=== PATIENT | female | born 1995 | race Caucasian/White ===

== ENCOUNTER → 2022-01-15 01:47 | Outpatient (CLI) | payer OTHER, SELFPAY ==
[2022-01-15 11:09] LABS: SARS-CoV-2 RNA PCR Negative
== END ==
PROVIDERS: Visit Provider Student in an Organized Health Care Education/Training Program
DX: Z01.812 Encounter for preprocedural laboratory examination (principal); Z20.822 Contact with and (suspected) exposure to COVID-19
CPT/HCPCS: C9803; U0003; U0005

== ENCOUNTER 2022-01-18 00:20 | Day surgery (SDC) | payer OTHER, SELFPAY ==
--- NOTE | 2022-01-14 15:51 | SUR.PREOP ---
Report to the Outpatient Waiting Room, entrance under the green pavilion located off [facility], at time 0630 on date 01/18/22. OR Time: 0830. - You and your visitor will be asked a series of questions to screen for COVID 19 for your protection. - A mask is required within the hospital. Preoperative COVID Testing Requirements: No COVID Test needed if: (proof is required; if not received patient will have Rapid Test prior to entry) - Patient has received COVID Vaccine at least 14 days prior to procedure date or - Patient has positive COVID test result within last 90 days of surgery date. COVID Test needed if above criteria is not met If not COVID vaccinated a COVID test must be conducted within 72 hours of surgery and patient is asked to isolate self from time of testing until procedure. You will go to the [facility] for your COVID testing. The [facility] site is located at the corner of [address] [facility]. You will only be called if COVID results are positive and your surgeon may reschedule your elective surgery date. Patients may have clear liquids (water, carbonated beverages, clear teas, apple juice) until 3 hours prior to surgery with a maximum of 20 ounces. - NO CLEAR LIQUIDS AFTER 0530 - No food from midnight until time of surgery - Infants may have breast milk until 4 hours before surgery, infant formula 6 hours prior to surgery. - Children will be allowed to drink immediately following surgery. If applicable, please bring a bottle or sippy cup to assist with drinking. Juice, water, soda, and popsicles are readily available. For infants on formula, please bring formula the day of surgery. Pacifiers are allowed. Take the following medications with a SIP of water the morning of surgery: SERTRALINE Medications to discontinue per physician Date to take last dose Please no make-up, nail yi, hairspray, perfume, deodorant, or body powder the day of surgery. No jewelry (including any body piercings) or valuables the day of surgery, leave them at home. Please take a shower or bath the night before, or the morning of, surgery with an antibacterial soap. Wear comfortable, loose fitting clothing. Children are encouraged to wear pajamas. - Jewelry must be removed prior to entering the operating room. Rings and piercings that are not removed may be cut off. - The hospital will not accept responsibility for valuables. - Please leave all valuables, including medications, at home the day of surgery. If you are going home after surgery, a licensed moving van driver must drive you home. - NO public transportation without another adult. - We recommend that an adult stay with you for 24 hours following discharge. - We also recommend that you do not drive, make important decision, drink alcoholic beverages, or take any drugs that were not prescribed by your health care provider for at least 24 hours after your discharge time. For Pediatric surgeries, we recommend two adults accompany the child home (only one inside the building at this time). One visitor will be allowed to accompany the patient into the hospital. Patients visitor will be instructed to remain with patient at all times or leave the building. We will allow the visitor to come back to the postoperative area when patient is ready. Follow any additional instructions given to you from your surgeon. Telephone instructions given to JODY MURILLO and asked if any additional questions and then verbalized understanding. Patient advised to call surgeon office or pre surgery nurse liaison [phone] if any additional questions.
[2022-01-14 16:02] VITALS: BMI 39.9
--- NOTE | 2022-01-17 17:24 | PM.IMHP ---
H&P: HPI History of Present Illness Date/Time: 01/17/22 17:24 Patient is a 26yo woman who presents for permanent sterilization. Patient does not desire future fertility stating that she is certain she does not want any more children in the future. She declines all alternative methods of contraception. In general, patient reports feeling well today without complaints. Chief Complaint: Multiparity, desires permanent sterilization Review of Systems Review of Systems: All systems reviewed & are unremarkable except as noted in HPI and below Constitutional: Constitutional: Reports as per HPI, Reports no additional constitutional complaints, Denies chills, Denies fever(s), Denies headache(s) and Denies night sweats Eyes: Eyes: Reports as per HPI and Reports no additional eye complaints ENT: Reports system reviewed and no additional complaints, except as documented, Reports as per HPI, Reports Normal hearing present and Denies headache(s) Cardiovascular: Cardiovascular: Reports as per HPI, Reports no additional cardiovascular complaints, Denies chest pain and Denies dyspnea Respiratory: Respiratory: Reports as per HPI, Reports no additional respiratory complaints, Denies cough and Denies dyspnea Gastrointestinal: Gastrointestinal: Reports as per HPI, Reports no additional gastrointestinal complaints, Denies abdominal pain, Denies change in bowel habits, Denies change in stool character, Denies nausea and Denies vomiting Genitourinary: Genitourinary: Reports no additional female genitourinary complaints, Reports as per HPI, Denies abnormal vaginal bleeding, Denies genital lesions, Denies hot flashes, Denies dyspareunia, Denies pelvic pain, Denies sexual dysfunction, Denies urinary incontinence, Denies vaginal discharge, Denies vaginal dryness and Denies vaginal odor Musculoskeletal: Musculoskeletal: Reports no additional musculoskeletal complaints and Reports as per HPI Integumentary/Breasts: Skin/Breast: Reports system reviewed and no additional complaints, except as docu, Reports as per HPI, Denies breast pain and Denies nipple discharge Neurologic: Reports system reviewed and no additional complaints, except as documented, Reports as per HPI, Reports Normal hearing present and Denies headache(s) Psychiatric: Psychiatric: Reports no additional psychiatric complaints, Reports as per HPI, Denies anxiety and Denies depression Endocrine: Endocrine: Reports no additional endocrine complaints and Reports as per HPI Hematologic/Lymphatic: Hematologic/Lymphatic: Reports no additional hematologic/lymphatic complaints and Reports as per HPI Allergic/Immunologic: Allergic/Immunologic: Reports no additional allergic/immunologic complaints and Reports as per HPI [facility] Past Medical History Medical History Anxiety Surgical History Surgical History History of 2 sections Family History Family History Father Brain cancer Hypertension Mother Depression Anxiety Sibling Depression Anxiety Grandparent Carcinoma of colon Cerebrovascular accident Diabetes mellitus Heart disease Thyroid disorder Social History Social History Smoking status: Never smoker Spiritual care concerns: No Meds Home Medications and Allergies Home Medications Medication Instructions Recorded Confirmed Type sertraline 100 mg PO DAILY 01/14/22 01/14/22 History Allergies Allergy/AdvReac Type Severity Reaction Status Date / Time No Known Allergies Allergy Verified 01/14/22 16:05 Exam Const: General: cooperative, healthy appearing, comfortable and no acute distress HENMT: Head: normal to inspection Ears: hearing grossly normal bilaterally Eyes: General: appearance normal, both eyes and all related structures Neck
[2022-01-18] VITALS (8 sets, daily range): BP systolic 71–125; BP diastolic 25–68; PULSE 54–78; RESP 13–20; TEMP 36.9; O2SAT 96–100
[2022-01-18] MEDS: KETOROLAC 15 MG/ML VIAL (*BKC) IV PUSH (07:00)
[2022-01-18] MEDS: LACTATED RINGERS 1,000 ML 30 ML IV CONT ×2 (07:00→09:08)
[2022-01-18] MEDS: ACETAMINOPHEN 500 MG TABLET 1000 MG PO (07:15)
--- NOTE | 2022-01-18 07:20 | WPDHPUPDATE1 ---
History and Physical Update Update Date/Time: 01/18/22 07:20 History and Physical has been reviewed, including an updated exam of the patient. There are NO changes in the patient's condition. Risks, benefits, and alternatives have been discussed and questions answered. Patient agrees to proceed with procedure.
--- NOTE | 2022-01-18 07:53 | WPDANESEPPF ---
Anes - Initial Pre Proc Eval Procedure: Operation Date: 01/18/22 08:30 Proposed Procedures p Laparoscopic Bilateral Salpingectomy - Beulah Hernandez MD Date/Time: 01/18/22 07:53 Surgeon: Beulah Hernandez MD Pre Op Diagnosis: Desires Sterlization Patient Data Age: 26 Gender: F Height: 1.65 m Weight: 109 kg Allergies Allergy/AdvReac Type Severity Reaction Status Date / Time No Known Allergies Allergy Verified 01/18/22 07:34 Home Medications Medication Instructions Recorded Confirmed Type sertraline 100 mg PO DAILY 01/14/22 01/18/22 History Patient hx anesthesia problems: none Family hx anesthesia problems: none Results Review: All pre-operative results and documents have been reviewed as part of the pre-operative evaluation. PMFSH Past Medical History Medical History Anxiety Surgical History Surgical History History of 2 sections Family History Family History Father Brain cancer Hypertension Mother Depression Anxiety Sibling Depression Anxiety Grandparent Carcinoma of colon Cerebrovascular accident Diabetes mellitus Heart disease Thyroid disorder Social History Social History Smoking status: Never smoker Spiritual care concerns: No Anes - Eval Final PreProcedure Day of Procedure 01/18/22 07:53 Patient weight: morbidly obese Heart: regular rate and rhythm Lungs: clear to auscultation Airway: Mallampati scale class II Neurological: alert and oriented Last oral intake: >/= 8 hours ASA classification: III Emergent: no Anesthetic plan: proceed Anesthesia type and monitoring: general ETT and standard monitoring Results Review: All pre-operative results and documents have been reviewed as part of the pre-operative evaluation. Informed Consent: The patient's anesthetic plan and its attendant risks and benefits were discussed with the patient/family/POA. Questions were solicited and answers provided to the satisfaction of the patient/family/POA.
--- NOTE | 2022-01-18 09:06 | W.PM.PROC2 ---
Procedure Note - Detailed Date of Procedure 01/18/22 Pre-op Diagnosis Multiparity, desires permanent sterilization Post-op Diagnosis Same Procedure Performed Laparoscopic bilateral salpingectomy Surgeon Beulah Hernandez MD Forms Analysis Manager Skyler Yoder Anesthesia General Findings Normal appearing uterus, ovaries, and fallopian tubes Description of Procedure The patient was taken to the operating room, where she self transferred to the operating room table. She was placed in dorsal supine position. General anesthesia was administered and found to be adequate. The patient was then repositioned in dorsal lithotomy position with the use of Dmitri stirrups. She was prepped and draped in the usual sterile fashion. A red rubber catheter was used to drain the bladder of 110 cc of dark yellow urine. A sponge stick was inserted in the vagina for elevation of the uterus during the laparoscopic portion of the case. Bag Shaker's gloves were changed. Attention was then turned to the patient's abdomen. A small amount of Exparel was injected in infraumbilical region. An infraumbilical skin incision was made with a scalpel. With the abdomen tented up, a Veress needle was introduced into the abdominal cavity. Intra-abdominal placement was confirmed with saline. The Veress needle was connected to CO2 tubing and insufflation was begun. When adequate pneumoperitoneum was achieved, the Veress needle was removed and a 5 mm Optiview trocar was introduced under direct visualization with the laparoscope. The patient was placed in Trendelenburg position and a brief pelvic survey was performed with good visualization. Decision was made to place two accessory trocars for completion of the procedure, one in the left lower quadrant and the other in the right lower quadrant. A small amount of Exparel was administered in the right lower quadrant and a skin incision was made. A 5 mm trocar was introduced under direct visualization. Similarly, a small amount of Exparel was administered in the left lower quadrant and a skin incision was made. Another 5 mm trocar was introduced under direct visualization. With the use of blunt graspers, a general pelvic survey was performed. The uterus, ovaries and fallopian tubes appeared to be normal bilaterally. A few photographs were taken. The left fallopian tube was identified and followed through to the fimbriated end. Starting at the fimbriated end, sequential bites in the mesosalpinx beneath the fallopian tube were taken using a 5 mm LigaSure device towards the uterine cornua. When the level of the uterine cornua was reached, the fallopian tube was transected and completely detached. The fallopian tube was then removed and handed off to be sent to pathology. Attention was then turned to the patient's right fallopian tube, which in a similar manner, was grasped and followed through to the fimbriated end. With the use of the LigaSure device, sequential bites in the mesosalpinx beneath the fallopian tube were taken until the level of the uterine cornua was reached. The fallopian tube was then transected, completely detached, and removed. No bleeding was noted. Photographs were taken. The abdomen was desufflated and all trocars were removed. The patient's abdomen was cleansed and dried. The incision sites were closed with 4-0 Monocryl in a subcuticular fashion and a skin adhesive was applied on top of the incisions. The sponge stick was removed from the vagina. No bleeding was noted. The patient was cleansed and dried and taken out of the dorsal lithotomy position. She was awakened from anesthesia without difficulty and transported to the recovery room in stable condition. All sponge, lap, and instrument counts were correct at the end the procedure. The patient tolerated the entire procedure well. Estimated Blood Loss 5 IV Fluids 1,000 Urine Output 110 Drains No Packing No Pathology Yes (right and left fallopian tubes) Complications No immediate complic
--- NOTE | 2022-01-18 09:52 | SUR.PHASEI ---
0945- at [facility] to speak with pt.
== END 2022-01-18 11:10 | disposition home or self-care (01) ==
PROVIDERS: PCP Family Medicine; Visit Provider Student in an Organized Health Care Education/Training Program
PROC: (CPT 58671; principal; 2022-01-18 08:30)
DX: Z30.2 Encounter for sterilization (principal); F41.9 Anxiety disorder, unspecified; E66.01 Morbid (severe) obesity due to excess calories; Z68.41 Body mass index [BMI] 40.0-44.9, adult
CPT/HCPCS: 58661; 88302; A9270; C9290; J1100; J1885; J2250; J2405; J2704; J2710; J3010; J7120

== ENCOUNTER 2022-02-16 19:58 | Emergency (ER) | payer OTHER, SELFPAY ==
--- NOTE | ~2022-02-16 | XR_ITS ---
EXAMINATION: XR chest 1V portable Exam Date/Time: 02/16/2022 20:40 CDT CLINICAL HISTORY: LT ant chest pain today that goes down LT arm Comparison: None available RESULT: Lines, tubes, and devices: None. Lungs and pleura: Clear. Cardiomediastinal silhouette: Normal cardiomediastinal silhouette. Other: No acute osseous or upper abdominal finding. IMPRESSION: No acute cardiopulmonary process. Reviewed, dictated and finalized at location K.
[2022-02-16 20:05] VITALS: BP 124/69; PULSE 76; RESP 16; TEMP 36.2; O2SAT 96
--- NOTE | 2022-02-16 20:07 | ECG_ITS ---
Measurements Intervals [place] Rate: 63 P: 33 NC: 189 QRS: 9 QRSD: 77 T: 16 QT: 391 QTc: 403 Interpretive Statements SINUS RHYTHM NORMAL ECG NO PREVIOUS ECG AVAILABLE FOR COMPARISON Electronically Signed On 02-18-2022 15:48:31 CDT by Favian Browne M.D.
[2022-02-16 20:20] VITALS: PULSE 81
[2022-02-16] MEDS: ASPIRIN 81 MG CHEWABLE TABLET 324 MG PO (20:26)
--- NOTE | 2022-02-16 20:33 | ED.CHESTPAIN ---
HPI - Chest Pain General Chief Complaint: Chest Pain Stated Complaint: chest pain Time Seen by Provider: 02/16/22 20:01 Source: patient and RN notes reviewed Mode of arrival: ambulatory Limitations: no limitations History of Present Illness complaint: chest pain Onset (ago): hour(s) (8) Timing of current episode: episodic Prior episodes: No Onset: during rest Pain location: left chest Pain radiation: left arm Severity: moderate Pain scale (0-10): 6 Quality: aching, heaviness and dull Relieving factors: nothing Exacerbating factors: nothing Treatment prior to arrival: none Risk Factors Coronary artery disease risk factors: none Related Data Home Medications Medication Instructions Recorded Confirmed sertraline 100 mg PO DAILY 01/14/22 02/16/22 Allergies Allergy/AdvReac Type Severity Reaction Status Date / Time No Known Allergies Allergy Verified 02/16/22 20:12 Review of Systems Review of Systems: All systems reviewed & are unremarkable except as noted in HPI and below PMFSH Past Medical History Medical History (Updated 02/16/22 @ 21:37 by Deangelo Bansal MD) Anxiety Chest pain at rest Surgical History Surgical History History of 2 sections Family History Family History Father Brain cancer Hypertension Mother Depression Anxiety Sibling Depression Anxiety Grandparent Carcinoma of colon Cerebrovascular accident Diabetes mellitus Heart disease Thyroid disorder Social History Social History Smoking status: Never smoker Spiritual care concerns: No Exam Const: General: no acute distress and alert Nutritional Appearance: obese Orientation/consciousness: patient oriented x3 HENMT: Head: normal to inspection Ears: external ears normal, TM's normal bilaterally and EAC's normal General nose exam: Normal external nose present and Normal nares present Face and sinus: normal facial exam Mouth: Yes moist mucous membranes Eyes: Conjunctivae: conjunctivae normal Pupils: Equal, round and reactive pupils present EOM: EOMs intact bilaterally Neck: Neck: normal visual inspection and no lymphadenopathy Chest: Chest palpation & inspection: normal inspection of the chest Resp: Effort & Inspection: normal respiratory effort Auscultation: clear to auscultation bilaterally Cardio: Rate: regular rate Rhythm: regular rhythm GI: GI Palp: Yes Soft to palpation and No Tenderness to palpation present (GI) Auscultation: normal bowel sounds : General: Yes bladder normal to palpation and Yes no CVA tenderness Back/Spine/Pelvis: Back: no CVA tenderness Skin: General skin exam: normal color Neuro: General: patient oriented x3, moves all extremities, no meningeal signs, no focal motor deficits and CN's II-XI intact bilaterally Extrem: General: normal to inspection and no pedal edema Psych: Appearance: grossly normal and well kempt Mental Status: mental status grossly normal Affect: normal affect Attitude: cooperative Thought content: Yes Normal thought content present Course Course Emergency Course: Pt was stable in the ED. less chest pain. no other anxiety sxs. Reevaluation(s) Reevaluation #1: VSS Date: 02/16/22 Time: 21:00 MDM - Chest Pain Differential Diagnosis Differential diagnosis: Likely atypical chest pain and chest pain Medical Records Data Attestation: I reviewed the patient's medical records. Lab Data Attestation: I reviewed the patient's lab results. Imaging Data Radiologist's impression: See the report. Critical Care Time Critical Care Time Critical Care Time: No Total Critical Care Time: 0 Discharge Plan Discharge Clinical Impression: Atypical chest pain Patient Disposition: Home, Self-Care Condition: Stable Instructions: Antibiotic Form, Chest Pain (ED)
[2022-02-16] MEDS: NITROGLYCERIN SL 0.4 MG TABLET SUBLINGUAL (20:35)
[2022-02-16 20:40] VITALS: BP 126/78; PULSE 70
[2022-02-16 20:40] LABS: Basophils Absolute Auto 0.03 K/mm3 (0.00-0.10); Basophils Percent Auto 0.2 % (0.0-1.0); Eosinophils Absolute Auto 0.06 K/mm3 (0.02-0.50); Eosinophils Percent Auto 0.5 % (1.0-6.0); Hematocrit 37.8 % (35.0-49.0); Hemoglobin 13.1 g/dL (12.0-15.0); Immature Granulocyte Absolute 0.03 K/mm3 (0.00-0.00); Immature Granulocyte Percent A 0.2 % (0.0-0.0); Lymphocytes Absolute Auto 3.36 K/mm3 (1.10-4.50); Lymphocytes Percent Auto 26.6 % (18.0-42.0); Mean Corpuscular HGB Conc 34.7 g/dL (32.0-36.0); Mean Corpuscular Hemoglobin 32.8 pg (27.0-31.0); Mean Corpuscular Volume 94.7 fL (78.0-102.0); Mean Platelet Volume 8.3 fl (9.2-11.8); Monocytes Absolute Auto 0.95 K/mm3 (0.10-0.90); Monocytes Percent Auto 7.5 % (2.0-11.0); Neutrophils Absolute Auto 8.2 K/mm3 (1.7-7.2); Platelet Count Result 397 K/mm3 (150-420); Red Blood Count 3.99 M/mm3 (4.20-5.40); White Blood Count 12.6 K/mm3 (4.8-10.8)
[2022-02-16 20:58] LABS: Alanine Aminotransferase 48 U/L (14-59); Albumin Level 3.8 g/dL (3.4-5.0); Alkaline Phosphatase 93 U/L (46-116); Anion Gap 10 mmol/L (8-16); Aspartate Amino Transferase 22 U/L (15-37); Bilirubin,Total 0.3 mg/dL (0.00-1.00); Blood Urea Nitrogen 14 mg/dL (7-18); Carbon Dioxide 26 mmol/L (21-32); Chloride 103 mmol/L (98-108); Estimated CRCL calculation 113 ml/min; Estimated Glomerular Filt Rate > 60; Glucose 94 mg/dL (70-99); NT Pro B Type Natriuretic Pept 32 pg/mL (0-125); Osmolality Calculated 288 mOsm/kg (285-295); Sodium 139 mmol/L (136-145); Total Protein 7.7 g/dL (6.4-8.2)
[2022-02-16 20:59] LABS: Troponin I 6.3 ng/L (0.00-60.4)
[2022-02-16 21:01] VITALS: BP 116/72; PULSE 70; RESP 18; O2SAT 97
[2022-02-16 21:42] VITALS: BP 112/67; PULSE 64; RESP 18; TEMP 36.4; O2SAT 97
[2022-02-16 21:42] LABS: Bilirubin Urine Negative (Negative); Color Urine Light Yellow (Yellow); Glucose Urine UA Negative (Negative); Ketones Urine Negative (Negative); Leukocyte Esterase Ur Trace LEU/UL (Negative); Nitrate Urine Negative (Negative); Protein Urine Negative (Negative); Specific Grav Ur >= 1.030 (1.010-1.020); Urobilinogen Urine 0.2 mg/dL (0.2-1.0)
[2022-02-16 21:48] LABS: Add Urine Microscopic? YES; Blood Urine Trace-lysed (Negative)
[2022-02-16 21:49] LABS: Amphetamine Screen Urine Negative (Negative); Appearance Urine Cloudy (Clear); Bacteria Urine 1+ /hpf; Barbiturate Screen Urine Negative (Negative); Benzodiazepines Screen Urine Negative (Negative); Cannabinoid Screen Urine Negative (Negative); Cocaine Screen Urine Negative (Negative); Methadone Screen Urine Negative (Negative); Mucus Urine Heavy /lpf; Opiate Screen Urine Negative (Negative); Phencyclidine Screen Urine Negative (Negative); RBC Urine 21-50 /hpf (0-2); Squamous Epithelial Cell Urine Many /hpf (Few); WBC Urine 0-3 /hpf (0-3)
[2022-02-16] MEDS: ACETAMINOPHEN 325 MG TABLET 650 MG PO (21:50)
== END 2022-02-16 22:00 | disposition home or self-care (01) ==
PROVIDERS: Emergency Provider Emergency Medicine; PCP Family Medicine
DX: R07.89 Other chest pain (principal)
CPT/HCPCS: 36415; 71045; 80053; 80307; 81001; 83880; 84484; 85025; 93005; 99284; A9270

== ENCOUNTER 2022-10-28 10:11 | Outpatient (CLI) | payer OTHER, SELFPAY ==
[2022-10-28 10:58] LABS: Hemoglobin A1C 5.6 % (<5.7)
[2022-10-28 11:17] LABS: Alanine Aminotransferase 42 U/L (14-59); Albumin Level 4.1 g/dL (3.4-5.0); Alkaline Phosphatase 92 U/L (46-116); Anion Gap 8 mmol/L (8-16); Aspartate Amino Transferase 24 U/L (15-37); Bilirubin,Total 0.4 mg/dL (0.00-1.00); Blood Urea Nitrogen 14 mg/dL (7-18); Calcium 9.2 mg/dL (8.5-10.1); Carbon Dioxide 29 mmol/L (21-32); Chloride 103 mmol/L (98-108); Cholesterol 185 mg/dL (0-200); Estimated Glomerular Filt Rate > 60; Glucose 88 mg/dL (70-99); HDL Direct 41 mg/dL (40-60); LDL Cholesterol Calculated 115 mg/dL (<130); Osmolality Calculated 289 mOsm/kg (285-295); Potassium 4.5 mmol/L (3.5-5.1); Sodium 140 mmol/L (136-145); Triglycerides 144 mg/dL (0-150)
== END 2022-10-28 10:12 | disposition home or self-care (01) ==
PROVIDERS: PCP Physician Assistant; Visit Provider Physician Assistant
DX: E78.2 Mixed hyperlipidemia (principal); L83 Acanthosis nigricans; K76.0 Fatty (change of) liver, not elsewhere classified
CPT/HCPCS: 36415; 80053; 80061; 83036

== ENCOUNTER 2024-12-23 18:35 | Emergency (ER) | payer OTHER, SELFPAY ==
[2024-12-23 18:35] VITALS: BP 124/84; PULSE 75; RESP 20; TEMP 36.6; O2SAT 97
[2024-12-23 18:40] VITALS: O2SAT 97
--- NOTE | 2024-12-23 18:53 | ED_ITS ---
HPI - URI/Sore Throat General Chief Complaint: Upper Respiratory Infection Stated Complaint: uri Time Seen by Provider: 12/23/24 18:39 Source: patient Mode of arrival: ambulatory Limitations: no limitations History of Present Illness HPI Narrative: this is a 29-year-old female with 1 week history of cough congestion with some sore throat no fever chills no shortness of breath no audible wheezing no nausea vomiting or diarrhea. MD elicited complaint: sore throat, rhinorrhea and nasal congestion Onset (ago): week(s) Consistency: constant Severity: mild Related Data Home Medications ?Medication ?Instructions ?Recorded ?Confirmed ?Last Taken ?Type sertraline 100 mg tablet 100 mg PO DAILY 01/14/22 02/16/22 01/18/22 05:00 History Allergies Allergy/AdvReac Type Severity Reaction Status Date / Time No Known Allergies Allergy Verified 12/23/24 18:40 Review of Systems Review of Systems: All systems reviewed & are unremarkable except as noted in HPI and below PMFSH Past Medical History Medical History Chest pain at rest Anxiety Surgical History Surgical History History of 2 sections Family History Family History Father Brain cancer Hypertension Mother Depression Anxiety Sibling Depression Anxiety Grandparent Carcinoma of colon Cerebrovascular accident Diabetes mellitus Heart disease Thyroid disorder Social History Social History Smoking status: Never smoker Spiritual care concerns: No Exam Const: General: healthy appearing Nutritional Appearance: well nourished Orientation/consciousness: patient oriented x3 Limitations: no limitations HENMT: Other: Erythematous throat Eyes: Conjunctivae: conjunctivae normal EOM: EOMs intact bilaterally Neck: Neck: normal visual inspection and no lymphadenopathy Chest: Chest palpation & inspection: normal inspection of the chest Resp: Effort & Inspection: normal respiratory effort Auscultation: clear to auscultation bilaterally Cardio: Rate: regular rate Rhythm: regular rhythm Course Course Emergency Course: COVID RSV influenza heart and reviewed as well as strep. Impression sinusitis Vital Signs Vital signs: Vital Signs Temperature 36.6 C 12/23/24 18:35 Pulse Rate 75 12/23/24 18:35 Respiratory Rate 20 12/23/24 18:35 Blood Pressure 124/84 12/23/24 18:35 Pulse Oximetry 97 12/23/24 18:35 Oxygen Delivery Room Air 12/23/24 18:35 Temperature 36.6 C 12/23/24 18:35 Pulse Rate 72 12/23/24 19:57 Respiratory Rate 18 12/23/24 19:57 Blood Pressure 118/78 12/23/24 19:57 Pulse Oximetry 100 12/23/24 19:57 Oxygen Delivery Room Air 12/23/24 19:57 MDM - URI/Sore Throat Lab Data Labs: Lab Results 12/23/24 Range/Units 18:45 Influenza A (RT-PCR) Negative (Negative) Influenza B (RT-PCR) Negative (Negative) RSV (RT-PCR) Negative (Negative) SARS-CoV-2 RNA (RT-PCR) Negative (Negative) Group A Strep (PCR) Not detected (Negative) Critical Care Time Critical Care Time Critical Care Time: No Discharge Plan Discharge Clinical Impression: Sinusitis Patient Disposition: Home, Self-Care Condition: Stable Instructions: Antibiotic Form, Sinusitis (ED) Additional Instructions: take medication as prescribed, and follow up with primary if symptoms persist or worsen. Patient Language: Belarusian Prescriptions: New azithromycin [Zithromax Z-Suresh] 250 mg tablet See Rx Instructions .ROUTE .COMPLEX Qty: 6 0RF Rx Instructions: For 250 mg dose pack: take 500 mg today (day 1), then 250 mg for 4 days (days 2-5) No Action sertraline 100 mg Tablet 100 mg PO DAILY Follow-up/Referrals: Denise Herman MD [Primary Care Provider] - Time of Disposition: 19:37
--- OUTSIDE RECORDS SUMMARY | 2024-12-23 18:53 | XMS_ITS | Encounter Summary ---
Author Organization [facility] Address [address] [place] [id number] Care Team Providers Care Environmental Coordinator Name Role Phone Cindy Gallego PA-C Primary Care Provider [phone] Denise Herman MD Primary Care Provider [phone] Sandra Celis MD Primary Care Provider [phone] Denise Herman MD Primary Care Provider [phone] Encounter Details Date Type Department Care Team (Late st Contact Info) Description 04/17/2019 Abstract SFL CONVERSION [address] [place] [address] , Generic Conversion, Social History Tobacco Use Types Packs/Day Years Used Date Smoking Tobacco: Never Assessed Comments Unknown Sex and Gender Information Value Date Recorded Sex Assigned at Female 09/12/2021 5:27 AM CDT Legal Sex Female 5:44 PM [employer] Gender Identity Female 09/12/2021 5:27 AM CDT Sexual Orientation Straight 09/12/2021 5: 27 AM CDT documented as of this encounter Plan of Treatment Not on file documented as of this encounter Visit Diagnoses Not on filedocumented in this encounter Additional Health Concerns Infection Onset Date Last Indicated Resolved Time COVID-19 Rule Out 09/09/2021 09/09/2021 09/09/2021 7:00 PM CDT documented as of this encounter Care Teams Environmental Coordinator Relationship Specialty Start Date End Date Cindy Gallego PA-C [address] [place] [address] PCP - General PHYSICIAN SALES ASSISTANT DISPLAYS 07/18/19 05/10/21 Denise Herman MD [address] [place] [id number] PCP - General FAMILY PRACTICE 05/11/21 06/28/21 Sandra Celis MD [address] [place] [id number] PCP - General FAMILY PRACTICE 06/29/21 07/29/24 Denise Herman MD [address] [place] [id number] PCP - General FAMILY PRACTICE 07/30/24 documented as of this encounter
--- OUTSIDE RECORDS SUMMARY | 2024-12-23 18:53 | XMS_ITS | Clinical Summary ---
Author Organization [facility] Address [address] [place] [address] Care Team Providers Care Overlay Plastician Name Role Phone Denies Herman MD Primary Care Provider [phone] Allergies No known active allergies Medications 27-1 MG tablet 1 tablet. 09/06/2021 Active sertraline 50 MG tablet 50 mg. 09/06/2021 Active Active Problems Problem Noted Date Diagnosed Date ([facility]) 09/12/2021 Immunizations Name Administration Dates Next Due Tdap (Boostrix) 09/13/2021 Social History Tobacco Use Types Packs/Day Years Used Date Smoking Tobacco: Never Smokeless Tobacco: Never Alcohol Use Standard Drinks/Week Comments No 0 (1 standard drink = 0.6 oz pur e alcohol) Humiliation, Afraid, Rape, and Kick questionnair e Answer Date Recorded Within the last year, have y ou been afraid of your partner or ex-partner? No 09/12/2021 Within the last year, have y ou been humiliated or emotionally abused in other ways by your partner or ex-partner? No Within the last year, have y ou been kicked, hit, slapped, or otherwise physically hurt by your partner or ex-partner? No 09/12/2021 Within the last year, have y ou been raped or forced to have any kind of sexual activity by your partner or ex-partner? No 09/12/2021 Social Connection and Isolat ion Panel [NHANES] Answer Date Recorded In a typical week, how many times do you talk on the phone with family, friends, or neighbors? More than three times a week 09/12/2021 How often do you get togethe r with friends or relatives? More than three times a week 09/12/2021 How often do you attend chur ch or church services? Never 09/12/2021 Do you belong to any clubs o r organizations such as evangelical groups, unions, fraternal or athletic groups, or school groups? No 09/12/2021 How often do you attend meet ings of the clubs or organizations you belong to? Never 09/12/2021 Are you , , di vorced, , never , or living with a partner? Patient declined 09/12/2021 AUDIT-C Answer Date Recorded Q1: How often do you have a drink containing alc ohol? Never 09/12/2021 Average Number of Drinks Not on file 021 Frequency of Binge Drinking Not on file 01/2021 Overall Financial Resource Strain (CARDIA) Answe r Date Recorded How hard is it for you to pa y for the very basics like food, housing, medical care, and heating? Not hard at all 09/12/2021 [facility] - Occupational Stress Questionnaire Answer Date Recorded Do you feel stress - tense, restless, nervous, or anxious, or unable to sleep at night because your mind is troubled all the time - these days? Not at all 09/12/2021 Exercise Vital Sign Answer Date Recorde d On average, how many days pe r week do you engage in moderate to strenuous exercise (like a brisk walk)? 0 days 09/12/2021 On average, how many minutes do you engage in exercise at this level? 0 min 09/12/2021 Hunger Vital Sign Answer Date Recorded Within the past 12 months, y ou worried that your food would run out before you got the money to buy more. Never true 09/12/20 21 Within the past 12 months, t he food you bought just didn't last and you didn't have money to get more. Never true 09/12/2021 PRAPARE - Transportation Answer Date Re corded In the past 12 months, has l ack of transportation kept you from medical appointments or from getting medications? No 01/2021 In the past 12 months, has l ack of transportation kept you from meetings, work, or from getting things needed for daily living? No 09/12/2021 Housing Stability Vital Sign Answer Farooq e Recorded In the last 12 months, was t here a time when you were not able to pay the mortgage or rent on time? No 09/12/2021 In the last 12 months, how many places have you lived? 1 09/12/2021 In the last 12 months, was t here a time when you did not have a steady place to sleep or slept in a longterm (including now)? No 09/12/2021 Depression Answer Date Recor ded Last EPDS Total Score 0 09/12/2021 Last EPDS Self Harm Result Never 09/12 Comments No Sex and Gender Information Value Date Recorded Sex Assigned at Female 09/12/2021 5:27 AM CDT Legal Sex Female 5:44 PM SUBSTANCE ABUSE SPECIALIST Gender Identity Female 09/12/2021 5:27 AM CDT Sexual Orientation Straight 09/12/2021 5: 27 AM CDT Last Filed Vital Signs Vital Sign Reading Time Taken Comments Blood Pressure 124/76 09/16/2021 1:00 PM SUBSTANCE ABUSE SPECIALIST Pulse 72 09/16/2021 1:00 PM SUBSTANCE ABUSE SPECIALIST Temperature 36.3 C (97.4 F) 09/16/2021 1:00 PM SUBSTANCE ABUSE SPECIALIST Respiratory Rate 18 09/16/2021 1:00 PM SUBSTANCE ABUSE SPECIALIST Oxygen Saturation 99% 09/14/2021 6:15 AM CDT Inhaled Oxygen Concentration - - Weight 119.7 kg (264 lb) 09/13/2021 1:02 AM CDT Height 165.1 cm (5' 5 ) 09/13/2021 1:02 AM CDT Body Mass Index 43.93 09/13/2021 1:02 AM CDT Plan of Treatment Health Maintenance Due Date Last Done Comments Cervical Cancer Screening Pa p Smear (Age 21 to 29) Every 3 Years 1995 Cervical Cancer Screening 1995 Annual Physical 1998 Hepatitis C 2013 Hepatitis B Vaccines (1 of 3 - 19+ 3-dose series) 2014 COVID-19 Vaccine (2023-2 5 season) 2024 Influenza Adult (#1) 2024 DTaP, Tdap and Td Vaccines ( 3 - Td or Tdap) 09/13/2031 09/13/2021, 01/11/2000 HPV Vaccines Completed 08/07/2010, 07/15/2008, 04/15/2008 Meningococcal B Vaccine Aged Out No l onger eligible based on patient's age to complete this topic Meningococcal Vaccine Aged Out No bri aline eligible based on patient's age to complete this topic Pneumococcal Vaccine: Pediatrics (0 to 5 Years) and At-Risk Patients (6 to 64 Years) Aged Out No longer eligible b ased on patient's age to complete this topic RSV Immunizations Under 20 Months Aged Out No longer eligible b ased on patient's age to complete this topic Insurance [employer] Advance Directives * Full Code (Latest Code Status on File) Date Activated Date Inactivated Comments 09/12/2021 9:01 PM 09/14/2021 12:28 PM Care Teams Overlay Plastician Relationship Specialty Start Date End Date Denise Herman MD [address] [place] [id number] PCP - General FAMILY PRACTICE 07/30/24
--- NOTE | 2024-12-23 18:55 | PC.NURSE ---
ASSUMED CARE. REPORT RECEIVED FROM ELGIN BANKS
[2024-12-23 19:18] LABS: Strep Group A RT-PCR NOT DETECTED (Negative)
[2024-12-23 19:29] LABS: SARS-CoV-2 RNA PCR Negative (Negative)
[2024-12-23 19:31] LABS: Influenza A QL RT-PCR Negative (Negative); Influenza B QL RT-PCR Negative (Negative); RSV RNA, RT-PCR Negative (Negative)
[2024-12-23] MEDS: AZITHROMYCIN 250 MG TABLET 500 MG PO (19:44)
[2024-12-23 19:57] VITALS: BP 118/78; PULSE 72; RESP 18; O2SAT 100
== END 2024-12-23 19:57 | disposition home or self-care (01) ==
PROVIDERS: Emergency Provider Emergency Medicine; PCP Family Medicine
DX: J32.9 Chronic sinusitis, unspecified (principal); Z20.822 Contact with and (suspected) exposure to COVID-19
CPT/HCPCS: 87637; 87651; 99283; A9270

== ENCOUNTER 2025-02-10 08:30 | Outpatient (CLI) | payer OTHER, SELFPAY ==
--- OUTSIDE RECORDS SUMMARY | 2025-02-10 08:41 | XMS_ITS | Clinical Summary ---
Author Organization [facility] Address [address] [place] [address] Care Team Providers Care Manager Sales And Marketing Name Role Phone Denise Herman MD Primary Care Provider [phone] Allergies No known active allergies Medications 27-1 MG tablet 1 tablet. 09/06/2021 Active sertraline 50 MG tablet 50 mg. 09/06/2021 Active Active Problems Problem Noted Date Diagnosed Date ([facility]) 09/12/2021 Immunizations Name Administration Dates Next Due [...] often do you attend chur ch or buddhist services? Never 09/12/2021 Do you belong to any clubs o r organizations such as oriental orthodox groups, unions, fraternal or athletic groups, or [...] and heating? Not hard at all 09/12/2021 [facility] - Occupational Stress [...] place to sleep or slept in a senior living (including now)? 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 Gender Identity Female 09/12/2021 5:27 AM CDT Sexual Orientation Straight 09/12/2021 5: 27 AM CDT Last Filed Vital Signs Vital Sign Reading Time Taken Comments Blood Pressure 124/76 09/16/2021 1:00 PM DESIZING MACHINE OPERATOR HEAD END Pulse 72 09/16/2021 1:00 PM DESIZING MACHINE OPERATOR HEAD END Temperature 36.3 C (97.4 F) 09/16/2021 1:00 PM DESIZING MACHINE OPERATOR HEAD END Respiratory Rate 18 09/16/2021 1:00 PM DESIZING MACHINE OPERATOR HEAD END Oxygen Saturation 99% 09/14/2021 6:15 AM CDT [...] 2014 COVID-19 Vaccine (2023-2 5 season) 2024 DTaP, Tdap and Td Vaccines ( [...] 9:01 PM 09/14/2021 12:28 PM Care Teams Manager Sales And Marketing Relationship Specialty Start Date End Date Denise Herman MD [address] [place] [id number] PCP - General FAMILY PRACTICE 07/30/24
--- OUTSIDE RECORDS SUMMARY | 2025-02-10 08:41 | XMS_ITS | Encounter Summary ---
Author Organization [facility] Address [address] [place] [address] Care Team Providers Care Traffic Analyst Name Role Phone Cinyd Gallego PA-C Primary Care Provider [phone] Denise Herman MD Primary Care Provider [phone] Sandra Celis MD Primary Care Provider [phone] Denise Herman MD Primary Care Provider [phone] Encounter Details Date Type Department Care Team (Late st Contact Info) Description 04/17/2019 Abstract [facility] CONVERSION [address] [place] [address] , Generic Conversion, Social History Tobacco Use Types Packs/Day Years Used Date Smoking Tobacco: Never Assessed Comments Unknown Sex and Gender Information Value Date Recorded Sex Assigned at Female 09/12/2021 5:27 AM CDT Legal Sex Female 5:44 PM CIVIL ENGINEERING DIRECTOR Gender Identity Female 09/12/2021 5:27 AM CDT [...] documented as of this encounter Care Teams Traffic Analyst Relationship Specialty Start Date End Date Cindy Gallego PA-C [address] [place] [address] PCP - General PHYSICIAN PRESSER HAND 07/18/19 05/10/21 Denise Herman MD [address] [place] [phone] PCP - General FAMILY PRACTICE 05/11/21 06/28/21 Sandra Celis MD [address] [place] [address] PCP - General FAMILY PRACTICE 06/29/21 07/29/24 Denise Herman MD [address] [place] [address] PCP - General FAMILY PRACTICE 07/30/24 documented as of this encounter
[2025-02-10 09:01] LABS: Hemoglobin A1C 5.4 % (<5.7)
[2025-02-10 09:33] LABS: Alanine Aminotransferase 37 U/L (14-59); Albumin Level 3.9 g/dL (3.4-5.0); Alkaline Phosphatase 115 U/L (46-116); Anion Gap 11 mmol/L (4-12); Bilirubin,Total 0.6 mg/dL (0.00-1.00); Blood Urea Nitrogen 14 mg/dL (7-18); Carbon Dioxide 25 mmol/L (21-32); Chloride 103 mmol/L (98-108); Cholesterol 200 mg/dL (0-200); Estimated Glomerular Filt Rate > 60; Glucose 90 mg/dL (70-99); HDL Direct 36 mg/dL (40-60); LDL Cholesterol Calculated 125 mg/dL (<130); Osmolality Calculated 288 mOsm/kg (285-295); Sodium 139 mmol/L (136-145); Total Protein 7.9 g/dL (6.4-8.2); Triglycerides 194 mg/dL (0-150)
[2025-02-10 09:37] LABS: Aspartate Amino Transferase 32 U/L (15-37); Potassium 4.8 mmol/L (3.5-5.1)
== END 2025-02-10 08:31 | disposition home or self-care (01) ==
LOC: CHSLAB 08:33
PROVIDERS: PCP Family Medicine; Visit Provider Family Medicine
DX: E78.2 Mixed hyperlipidemia (principal); E66.3 Overweight; E66.9 Obesity, unspecified
CPT/HCPCS: 36415; 80053; 80061; 83036